=== PATIENT | female | born 1975 | race Caucasian/White ===

== ENCOUNTER → 2016-04-29 | Outpatient (CLI) | payer BC ==
[~2016-04-29] MED LIST: CALCTAB5 PO; ESCI1TAB10 PO; MULTTAB58 PO; SYN112 PO
[2016-04-29 17:50] LABS: THYROID STIMULATING HORMONE 3.58 uIu/ml (0.300-4.500)
== END | disposition home or self-care (01) ==
LOC: C.LABBFT 12:12
PROVIDERS: ATTEND Internal Medicine
DX: E03.9 Hypothyroidism, unspecified (principal); J02.9 Acute pharyngitis, unspecified

== ENCOUNTER → 2016-10-17 | Outpatient (CLI) | payer BC ==
[2016-10-17 16:50] LABS: THYROID STIMULATING HORMONE 4.81 uIu/ml (0.300-4.500)
== END | disposition home or self-care (01) ==
LOC: C.LABBFT 12:42
PROVIDERS: ATTEND Internal Medicine
DX: E03.9 Hypothyroidism, unspecified (principal)

== ENCOUNTER → 2016-12-23 | Outpatient (CLI) | payer BC ==
[2016-12-23 17:41] LABS: BASO % 0.1 %; BASO ABS # 0.01 K/uL (0-0.2); COMPLETE YES; EOS % 3.2 %; IG% 0.3 %; LYMPH % 21.1 %; LYMPH ABS # 1.54 K/uL (1.2-3.4); MEAN CELL VOLUME 92.5 fL (80-100); MEAN CORPUSCULAR HEMOGLOBIN 31.8 pg (25-34); MEAN CORPUSCULAR HGB CONC 34.3 g/dl (32-36); MEAN PLATELET VOLUME 10.9 fL (7.4-10.4); MONO % 5.3 %; PLATELET COUNT 237 K/uL (130-400); WHITE BLOOD COUNT 7.29 K/uL (4.8-10.8)
[2016-12-23 18:24] LABS: THYROID STIMULATING HORMONE 0.346 uIu/ml (0.300-4.500)
== END | disposition home or self-care (01) ==
LOC: C.LABBFT 13:07
PROVIDERS: ATTEND Physician Assistant Medical
DX: J02.9 Acute pharyngitis, unspecified (principal); E03.9 Hypothyroidism, unspecified

== ENCOUNTER → 2017-04-02 | Outpatient (CLI) | payer BC ==
--- NOTE | 2017-04-02 15:31 | DIAGNOSTIC IMAGING REPORT ---
RIGHT FIRST TOE 3 VIEWS CLINICAL HISTORY: First toe pain. FINDINGS: 3 views of the right first toe are correlated with right foot radiographs dated 03/09/2012. The skeletal structures are well mineralized. No fracture is seen. 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 Bony spurring is noted from the first metatarsal head. The first interphalangeal joint is normal in appearance. The overlying soft tissues are unremarkable. IMPRESSION: 1. No acute bony abnormality is seen in the right first toe. 2. Arthritic change and spurring are seen at the first metatarsophalangeal joint. Electronically signed by: Gurvinder Lucio M.D. 04/02/2017 3:30 PM Dictated Date/Time: 04/02/2017 3:29 PM
== END | disposition home or self-care (01) ==
LOC: C.RAD1850 14:53
PROVIDERS: ATTEND Student in an Organized Health Care Education/Training Program
DX: M79.674 Pain in right toe(s) (principal)

== ENCOUNTER → 2017-05-27 | Outpatient (CLI) | payer OTHER | END | disposition home or self-care (01) | LOC: C.LABBFT 11:30 | PROVIDERS: ATTEND Nurse Practitioner | DX: E03.9 Hypothyroidism, unspecified (principal) ==